=== PATIENT | male | born 1955 | race Caucasian/White ===

== ENCOUNTER 2018-04-20 19:56 | Inpatient (IN) ==
[2018-04-20] MEDS ORDERED: NS 1,000 ML IV ONE (20:49)
[2018-04-20 21:17] LABS: BASO# 0.02 X1000 (0.0-0.2); BASO% 0.3 % (0.0-0.8); EOS# 0.09 X1000 (0.0-0.7); EOS% 1.2 % (0.0-10.0); HEMOGLOBIN 11.3 g/dL (14.0-18.0); IMM GRAN# 0.07 X1000 (0.0-0.04); IMM GRAN% 0.9 % (0.0-0.5); LYMPH# 0.96 X1000 (1.2-3.4); LYMPH% 12.6 % (20.5-51.1); MCH 32.5 PG (27-31); MCHC 35.3 g/dL (33-37); MONO# 0.82 X1000 (0.11-0.59); MONO% 10.7 % (1.7-9.3); MPV 9.8 FL (7.4-10.4); NEUT# 5.68 X1000 (1.4-6.5); NEUT% 74.3 % (42.2-75.2); PLT 185 X1000 (130-400); RBC 3.48 XMIL (4.7-6.1); RDW 12.4 % (11.5-14.5); WBC 7.64 X1000 (4.8-10.8)
[2018-04-20 21:31] LABS: ALBUMIN 3.2 g/dL (3.5-5.0); CALCIUM 8.5 mg/dL (8.8-10.2); CREATININE 2.8 mg/dL (0.7-1.2); TOTAL BILIRUBIN 0.5 mg/dL (0.20-1.00); TOTAL PROTEIN 6.4 g/dL (6.3-8.3)
--- NOTE | 2018-04-20 22:01 | Diag Imaging Result Doc PS360 ---
EXAM: CT HEAD/C-SPINE W/O CONTRAST INDICATION: Fall with neck pain TECHNIQUE: This exam was performed using automated exposure control, adjustment of mA or kV according to patient size, and/or use of iterative reconstruction technique. COMPARISON: 05/10/2015 FINDINGS: Head: There is no definite acute infarct given the limited sensitivity of CT versus MRI. There is no discrete intracranial mass, mass effect, or intracranial hemorrhage. The surrounding soft tissues are essentially unremarkable. The calvaria is intact. C-spine: There is multilevel degenerative disc disease causing varying degrees of central canal and neuroforaminal stenosis, probably worst at C6-7 where there is fairly severe central canal and neuroforaminal stenosis. There are bulky flowing ventral marginal osteophytes that are more prominent than the previous study suggesting diffuse idiopathic skeletal hypertrophy (DISH). Otherwise, there is no discrete fracture, subluxation, or intrinsic osseous lesion. The surrounding soft tissues are essentially unremarkable. IMPRESSION: 1.No evidence of acute intracranial pathology. 2.Multilevel degenerative disc disease and suggestion of DISH. No evidence of fracture or other definite acute C-spine injury. Electronically signed by Kushal Freed 04/20/2018 9:59 PM
[2018-04-20] MEDS ORDERED: NS 1,000 ML IV SCH (23:30)
--- NOTE | 2018-04-21 00:26 | EKG Report ---
Test Performed on : 04/20/2018 8:05:09 PM Test Reason : syncope, hypotension Blood Pressure : / mmHG Vent. Rate : 072 BPM Atrial Rate : 072 BPM P-R Int : 180 ms QRS Dur : 092 ms QT Int : 436 ms P-R-T Axes : 072 051 048 degrees QTc Int : 477 ms Sinus rhythm. with premature atrial complexes. Low voltage QRS Cannot rule out Anterior infarct (cited on or before 26-JUL-2016) Abnormal ECG When compared with ECG of 26-JUL-2016 10:48, No significant change was found Unconfirmed Result
--- NOTE | 2018-04-21 01:20 | PROVIDER DOCUMENTATION ---
This chart was entered by Abi Freed Scribe, acting as scribe for Sophie Stone MD. HPI-General Adult - General Chief Complaint: Syncope Stated Complaint: syncope, fall, +LOC Time Seen by Provider: 04/20/18 20:25 Source: patient, family Allergies/Adverse Reactions: Patient Allergies Allergy/AdvReac Type Severity Reaction Status Date / Time hydrocodone Allergy ANAPHYLAXIS Verified 04/20/18 20:10 morphine Allergy HIVES Verified 04/20/18 20:10 codeine AdvReac SWELLING Verified 04/20/18 20:10 Home Medications: Home Medication List Medication Instructions Recorded Confirmed Last Taken Type Levothyroxine [Synthroid] 88 microgm PO DAILY #0 tablet 01/15/16 04/20/18 Unknown Rx Omeprazole [Prilosec] 20 mg PO DAILY@0700 #0 capsule 01/15/16 04/20/18 Unknown Rx Aripiprazole 10 mg PO DAILY 04/20/18 04/20/18 Unknown History Aspirin [Aspir-Low] 81 mg PO DAILY 04/20/18 04/20/18 Unknown History Clonazepam [Klonopin] 0.5 mg PO TID 04/20/18 04/20/18 Unknown History Divalproex [Depakote] 500 mg PO DAILY 04/20/18 04/20/18 Unknown History Losartan/Hydrochlorothiazide 1 tab PO DAILY 04/20/18 04/20/18 Unknown History [Losartan-Hctz 100-25 mg Tab] Trazodone [Desyrel] 50 mg PO DAILY 04/20/18 04/20/18 Unknown History Venlafaxine E.r. [Effexor Xr] 150 mg PO DAILY 04/20/18 04/20/18 Unknown History - History of Present Illness -Gen Adult Nature of Presenting Problems: 62 yom presents to ed w/cc pt states he "passed out" an hour ago while using the bathroom at a gas station. son reports that pt was taking longer than usual and went to the restroom to find pt and pt said he couldnt get up and was slumped over to left side. son also reports that pt barely gets any sleep at night and is exhausted all the time (maybe 30min-1hr in morning and 30min-1hr in afternoons). pt reprorts only taking half of his BP meds. pt states his neck is hurting. pt has hx of HTN, insomnia, thyorid disorder. Review of Systems - Adult - REVIEW OF SYSTEMS - ADULT Constitutional: reports: no symptoms reported Eyes: reports: no symptoms reported Ears, Nose, Mouth & Throat: reports: no symptoms reported Cardiovascular: reports: no symptoms reported Respiratory: reports: no symptoms reported Gastrointestinal: reports: no symptoms reported Genitourinary: reports: no symptoms reported Musculoskeletal: reports: see HPI, neck pain. denies: back pain, frequent leg cramps, joint pain Integumentary: reports: no symptoms reported Neurological: reports: see HPI Psychiatric: reports: depression Past History - Adult - PAST MEDICAL HISTORY-ADULT Review of Records: reports: Old Records Reviewed, Nursing Assessment Review, Medications Reviewed, Social history reviewed & non-contributory. Major Childhood Illnesses: reports: denies history Cardiovascular: reports: HTN Respiratory: reports: denies history Gastrointestinal: reports: denies history Obstetrical/Gynecological: reports: denies history Genitourinary: reports: denies history Musculoskeletal: reports: denies history Neurological: reports: denies history Psychiatric: reports: anxiety, bipolar, depression Endocrine/Immune: reports: thyroid disorder. denies: Diabetes Other Conditions: reports: denies history - PRIOR SURGERIES/PROCEDURES Surgical/Procedure History: reports: orthopedic (extremity), back/neck (back), other (perineal) - IMMUNIZATION STATUS Childhood Immunizations: See Nurse Assessment Flu Vaccine: See Nurse Assessment - FAMILY HISTORY Family History: reviewed, not pertinent - SOCIAL HISTORY Smoking: other (former) Provider spent 3-5 mins advising pt. on dangers of tobacco.: Discussed manners to quit use, and f/u contacts for add'l counseling. Substance Use: alcohol Alcohol Use Frequency: 3-4 times a week Physical Exam-General - PHYSICAL EXAM-ADULT Initial Vital Signs Reviewed: Yes - CONSTITUTIONAL General Appearance: mild distress, obese, anxious, lethargic. negative: appears well, no apparent distress, thin - EYES Eyes: PERRL/EOMI - HEAD, EARS, NOSE, MOUTH & THROAT HENMT: normocephalic/atraumatic, moist mucous membranes, normal ENT inspection, TMs normal - RESPIRATORY Respiratory: chest non-tender, lungs clear, normal breath sounds - CARDIOVASCULAR Cardiovascular: regular rate, rhythm - GASTROINTESTINAL (ABDOMEN) Abdominal Exam: normal bowel sounds, non tender, soft - MUSCULOSKELETAL Back Exam: normal inspection, no CVA tenderness, no vertebral tenderness Extremity: negative: normal range of motion, non-tender, normal gait, normal inspection, no pedal edema, no calf tenderness - SKIN Integumentary: normal color, normal turgor, warm/dry - NEUROLOGIC Neurologic: grossly normal, no motor/sensory deficits - PSYCHIATRIC Psych/Mental Status: anxious, disheveled, depressed affect. negative: normal mood/affect, normal thought content, normal thought process Progress - PLAN OF CARE/RESULTS Progress/Plan/Lab Results: Vital Signs - 8 hr 04/20/18 20:00 04/20/18 20:19 04/20/18 20:40 Temperature 97.4 F L Pulse Rate 74 71 74 Respiratory Rate 16 13 14 Blood Pressure 94/56 83/50 90/48 O2 Sat by Pulse Oximetry 96 95 96 Orders Category Date Time Status CT HEAD/C-SPINE W/O CONTRAST [CT] Stat Exams 04/20/18 20:49 Ordered CBC WITH ELECTRONIC DIFF [HEME] Stat Lab 04/20/18 20:49 Uncollected CMP [COMPREHENSIVE METABOLIC PANEL] [CHEM] Stat Lab 04/20/18 20:49 Uncollected TROPONIN T Stat Lab 04/20/18 20:49 Ordered 0.9% Sodium Chloride Inj [Ns] 1,000 ml Med 04/20/18 20:49 Active IV 999 mls/hr EKG [EKG] Stat Ther 04/20/18 20:00 Ordered C-COLLAR REMOVED AFTER C-SPINE RESULTS. Result Diagrams: 04/20/18 20:25 04/20/18 20:25 - EKG 1 Time of EKG reading by physician:: 20:05 EKG Read and Signed by:: Sophie Stone EKG Interpretation (*Must complete 3 of following elements*): Abnormal Rate: 72 Rhythm: SR w/ premature Atrial complexes QRS: other (low voltage qrs) AR Interval: normal - CONSULTS/PCP/HOSPITALIST Notification #1 *Consult/PCP/Hospitalist*: Dr. Cowan Time Discussed: 23:14 Consult Disposition: Admit (Accepted. Hx, PE and Dx discussed. Dr Cowan want NS@ 100 CC/HR and BMP Q4-6H. NURSE INFORMED TO UPDATE DR. COWAN WITH BMP RESULTS WHEN IT IS DONE.) Departure - Departure Date of Disposition Decision: 04/20/18 Time of Disposition Decision: 23:06 DIAGNOSIS: Hyponatremia, Falls frequently, Elevated serum creatinine Disposition: ADMITTED INPATIENT 09 Certified Medical Emergency: Emergent Condition: Serious - Critical Care Note This patient required my direct & personal management of CC.: No Attestation - Physician/ TAIWO Attestation Patient care was provided by Advanced Practice Provider:: No The physician spent face to face time with patient:: Yes Advanced Practice Provider documentation review:: Supervising physician onsite and consulted in the evaluation and care of this patient. The physician did have a face to face encounter with the patient. This chart was documented by the indicated scribe, (Abi Freed, Dani) and accurately reflects the services I performed and decisions made by me, Sophie Stone MD, as attested by the provider's signature.
[2018-04-21] MEDS ORDERED: FLU VACCINE IM ONE (01:43)
[2018-04-21 02:19] LABS: CALCIUM 8.6 mg/dL (8.8-10.2); CREATININE 2.4 mg/dL (0.7-1.2); POTASSIUM 3.4 mmol/L (3.5-5.1)
[2018-04-21 06:55] LABS: CALCIUM 8.2 mg/dL (8.8-10.2); CREATININE 2.2 mg/dL (0.7-1.2); POTASSIUM 3.3 mmol/L (3.5-5.1)
[2018-04-21] MEDS ORDERED: NS 1,000 ML IV SCH (08:45)
[2018-04-21] MEDS ORDERED: ABILIFY PO SCH (09:00)
[2018-04-21] MEDS ORDERED: DESYREL PO SCH (09:00)
[2018-04-21] MEDS: EFFEXOR XR PO SCH (10:24)
[2018-04-21] MEDS: KLONOPIN PO SCH ×3 (10:26→17:15)
[2018-04-21] MEDS: ASPIRIN EC PO SCH (10:26)
[2018-04-21] MEDS: SYNTHROID PO SCH (10:26)
[2018-04-21 10:37] LABS: CALCIUM 8.7 mg/dL (8.8-10.2); CREATININE 2.1 mg/dL (0.7-1.2); POTASSIUM 3.3 mmol/L (3.5-5.1)
--- NOTE | 2018-04-21 11:01 | HISTORY AND PHYSICAL ---
PRIMARY CARE PHYSICIAN: Dr. Kenny Rodriguez. CHIEF COMPLAINT: Syncopal episode while using the bathroom at a gas station. HISTORY OF PRESENTING ILLNESS: This is a 62-year-old male, who presents to [facility] ER stating that he had "passed out approximately 1 hour prior to arriving." States he was in the bathroom at a gas station. His son was with him, and found that the patient was taking longer than usual, went to the restroom, and found him slumped over in the floor, and could not get up. When he arrived to the emergency room, he had a sodium of 120, potassium of 3, creatinine was 2.8. His blood pressure was 94/56 and approximately 20 minutes later, dropped to 83/50. We did do a CT of the head and cervical spine that showed no evidence of acute intracranial pathology and multilevel degenerative disk disease, but no evidence of fracture. So, he was admitted for further evaluation and treatment. PAST MEDICAL HISTORY: Hypertension, hypothyroidism, bipolar type 1, osteoarthritis. PAST SURGICAL HISTORY: Three back surgeries, a right hip replacement, and a right ankle surgery. FAMILY HISTORY: Reviewed and noncontributory. SOCIAL HISTORY: He lives with his 17-year-old son, who was in the [employer] and [employer], but is currently not working. Drinks 4 beers 4 times a week. Denies any tobacco use, stating that he quit in 1999, and denies any illicit drugs. ALLERGIES: Hydrocodone, morphine, and codeine. HOME MEDICATIONS: We will hold his losartan/HCTZ 100/25 one p.o. daily, aspirin 81 mg p.o. daily, Klonopin 0.5 mg p.o. t.i.d., Depakote 500 mg p.o. daily, Synthroid 88 mcg p.o. daily, Prilosec 20 mg p.o. daily, Desyrel 100 mg p.o. at bedtime, and Effexor 150 mg p.o. daily. LABORATORY DATA: Showed a white blood cell count of 7.64, hemoglobin 11.3, hematocrit 32, platelets 185,000. Sodium was 120, potassium 3.0, chloride 76, BUN of 17, creatinine 2.8, glucose 119. Recheck of BMP this a.m. showed a sodium of 127, potassium 3.3, creatinine at 2.2. Depakote level was 27.40. CT of the head showed no evidence of acute intracranial pathology. CT of the C- spine showed multilevel degenerative disk disease and suggestion of DISH. No evidence of fracture or other definitive acute C spine injury. REVIEW OF SYSTEMS: He denied any fever, chills, blurred vision. He did have some dizziness with standing, had a syncopal episode. Denied any chest pain, coughing, shortness of breath. Denied any abdominal pain, constipation, diarrhea, burning or hurting with urination. PHYSICAL EXAMINATION: VITAL SIGNS: On arrival, he had a temp of 97.4 degrees, pulse 74, respirations 16, blood pressure 94/56, saturating 96% on room air. Approximately 20 minutes after arrival, his blood pressure dropped to 83/50. Currently, he is up to 103/53. GENERAL: This is a 62-year-old male who is lying in the bed and answers questions appropriately. HEENT: Normocephalic, atraumatic. Normal ENT inspection. Oropharynx and nares are clear. Pupils are equal, round, reactive to light and accommodation. Extraocular movements are intact. NECK: Normal inspection, normal range of motion. LUNGS: Clear to auscultation bilaterally with equal lung expansion and chest wall movement. HEART: Regular rate and rhythm. No murmurs, rubs, or gallops. ABDOMEN: Soft, nontender, nondistended. Bowel sounds are present x4 quadrants. MUSCULOSKELETAL: He has 5/5 strength x4 extremities. NEUROLOGICAL: The cranial nerves 2-12 appear grossly intact. ASSESSMENT: 1. Syncope. 2. Hypotension. 3. Acute kidney injury. 4. Hypokalemia. 5. Hyponatremia. 6. Hypothyroidism. PLAN: He was admitted to the medical unit at [facility]. Placed on healthy heart diet. We are going to check a BMP q.[address] on normal saline at 75 mL an hour. Check a carotid ultrasound and an echocardiogram today. We will continue his home medications as previously identified. We will hold his ARB and diuretic medications at this time. Further orders after seen by attending. Dictated by YANNI Arango for Nhan Wall MD cc: YANNI Arango MD Brian R. James, MD
[2018-04-21] MEDS: DEPAKOTE PO SCH (13:00)
--- NOTE | 2018-04-21 13:24 | Extremity Venous Study ---
EXAM: Carotid Ultrasound HISTORY: syncope TECHNIQUE: Carotid Doppler ultrasound COMPARISON: None. FINDINGS: Right: There is normal flow in the common carotid artery. No stenosis. There is a small amount of plaque within the bulb. Peak systolic velocity in the internal carotid artery is 77 cm/s. The ICA/CCA ratio 0.7. There is antegrade flow in the vertebral artery. Left: There is normal flow in the common carotid artery. A small amount of plaque is present in the bulb. The peak systolic velocity in the internal carotid artery is 77 cm/s. The ICA/CCA ratio 0.7. There is antegrade flow in the vertebral artery. IMPRESSION: Mild stenosis within each proximal internal carotid artery of less than 40% Electronically signed by Dave Doyle 04/21/2018 1:22 PM
[2018-04-21] MEDS ORDERED: D5 1/2 NS 1,000 ML IV SCH (14:45)
[2018-04-21] MEDS ORDERED: D5 1/2 NS 500 ML IV SCH ×2 (14:45)
[2018-04-21 14:46] LABS: CALCIUM 8.3 mg/dL (8.8-10.2); POTASSIUM 3.2 mmol/L (3.5-5.1)
[2018-04-21] MEDS: NS 1,000 ML IV SCH ×2 (16:30→22:00)
[2018-04-21 16:33] LABS: UR PROT RANDOM 4.5 mg/dL
--- NOTE | 2018-04-21 16:47 | ECHO REPORT ---
ORDER DATE: 04/21/2018 INTERPRETING PHYSICIAN: Dr. Cano REQUESTING PHYSICIAN: Dr. Wall, hospitalist CLINICAL INDICATIONS: This is a 62-year-old male with syncope, inpatient at [facility]. M-MODE MEASUREMENTS: Right ventricle: cm. Left ventricle end diastole: 3.6 cm. Left ventricle end systole: 2.4 cm. Posterior wall: 1.3 cm. Interventricular septum: 1.3 cm. Left atrium: 3.7 cm. Aortic root: 2.3 cm. SUMMARY OF 2-DIMENSIONAL IMAGIN. The left ventricular function is normal. The ejection fraction is estimated at 60% to 65%. Definity was added to optimize visualization of endocardium. This study was technically difficult. 2. The right ventricle appears to be mildly enlarged. The patient is obese. 3. Atria appear to be grossly normal. 4. Aortic valve looks normal. Color flow mapping is unremarkable. 5. Pulmonic valve was normal. Color flow mapping is unremarkable. 6. Tricuspid valve shows no significant regurgitation. 7. Mitral valve looks normal. Color flow mapping is unremarkable. 8. Pulse wave Doppler of mitral inflow is normal. 9. Tissue Doppler of septal and lateral mitral annulus averages 8 cm. 10.There is no diastolic dysfunction. 11.There is no pericardial effusion, masses or thrombus. 12.Epicardial fat pad is noted. Clinical correlation is recommended. cc: MD Echo Valentino CRNP
[2018-04-21] MEDS ORDERED: NS 500 ML IV ONE (16:58)
[2018-04-21 18:18] LABS: CREATININE 1.7 mg/dL (0.7-1.2); POTASSIUM 3.3 mmol/L (3.5-5.1)
--- NOTE | 2018-04-21 20:31 | HISTORY AND PHYSICAL ---
SUBJECTIVE: The patient came in with weakness and dizziness. He was found to be profoundly orthostatic, hyponatremic and in acute kidney injury. He denies any major symptoms. He has had his medications adjusted. He does have bipolar and he is on several psychiatric medications but his sodium today was as low as 120, potassium low as well, which he has since improved with treatment. In any case patient was admitted for hyponatremia, acute kidney injury and syncope. Physical exam is unremarkable. Certainly not overloaded. I really do not feel like he is clinically dehydrated but he is orthostatic so we will continue normal saline and adjust accordingly. I think this may be related to hydrochlorothiazide which we are going to hold, we are checking his electrolytes, urine electrolytes and decide more about long-term course of action. cc: Nhan Wall MD
[2018-04-21] MEDS: DESYREL PO SCH (20:56)
[2018-04-21 22:26] LABS: CALCIUM 8.1 mg/dL (8.8-10.2); CREATININE 1.8 mg/dL (0.7-1.2); POTASSIUM 3.6 mmol/L (3.5-5.1)
[2018-04-22] MEDS: PRILOSEC PO SCH (06:12)
[2018-04-22] MEDS: SYNTHROID PO SCH (06:12)
[2018-04-22 06:15] LABS: BASO# 0.02 X1000 (0.0-0.2); BASO% 0.3 % (0.0-0.8); EOS# 0.13 X1000 (0.0-0.7); EOS% 2.2 % (0.0-10.0); HEMATOCRIT 32.3 % (42.0-52.0); IMM GRAN# 0.06 X1000 (0.0-0.04); LYMPH# 1.25 X1000 (1.2-3.4); LYMPH% 21.6 % (20.5-51.1); MCH 32.4 PG (27-31); MCHC 34.1 g/dL (33-37); MONO# 0.61 X1000 (0.11-0.59); MONO% 10.5 % (1.7-9.3); MPV 9.2 FL (7.4-10.4); NEUT# 3.72 X1000 (1.4-6.5); NEUT% 64.4 % (42.2-75.2); PLT 171 X1000 (130-400); RDW 12.6 % (11.5-14.5); WBC 5.79 X1000 (4.8-10.8)
[2018-04-22 06:31] LABS: CALCIUM 8.2 mg/dL (8.8-10.2); CREATININE 1.7 mg/dL (0.7-1.2); POTASSIUM 3.6 mmol/L (3.5-5.1)
[2018-04-22] MEDS: NS 1,000 ML IV SCH ×2 (07:29→17:18)
[2018-04-22] MEDS: ASPIRIN EC PO SCH (09:09)
[2018-04-22] MEDS: DEPAKOTE PO SCH (09:09)
[2018-04-22] MEDS: KLONOPIN PO SCH ×3 (09:09→17:18)
[2018-04-22] MEDS: EFFEXOR XR PO SCH (09:09)
[2018-04-22 11:41] LABS: CALCIUM 8.3 mg/dL (8.8-10.2); CREATININE 1.6 mg/dL (0.7-1.2); POTASSIUM 3.4 mmol/L (3.5-5.1)
[2018-04-22 17:05] LABS: CREATININE 1.5 mg/dL (0.7-1.2); POTASSIUM 3.4 mmol/L (3.5-5.1)
[2018-04-22] MEDS ORDERED: KLOR-CON PO ONE (18:19)
[2018-04-22 20:10] LABS: CALCIUM 7.9 mg/dL (8.8-10.2); CREATININE 1.4 mg/dL (0.7-1.2); POTASSIUM 3.2 mmol/L (3.5-5.1)
[2018-04-22] MEDS: DESYREL PO SCH (21:35)
--- NOTE | 2018-04-22 23:33 | PROGRESS NOTE ---
DATE: 04/22/2018 SUBJECTIVE: The patient has no focal complaints. OBJECTIVE: Vital Signs: Blood pressure 104/61, heart rate of 81, respiratory rate of 20, temperature 98.1 degrees. Cardiovascular: Regular rate and rhythm. Pulmonary: Bilateral breath sounds. Clear to auscultation. Gastrointestinal: Soft, nontender, nondistended. Bowel sounds were positive. LABORATORY STUDIES: White count 5, H H of 11 and 32, platelets 171,000. Sodium is 132, potassium 3.4. TSH 4.99. Urine sodium is 15. Urine osmolarity is only 145. PROBLEM LIST: 1. Symptomatic hyponatremia, likely related to reset osmostat from hydrochlorothiazide. He is improving with fluids. Anticipate it will normalize, or be safe enough for discharge tomorrow. 2. Hypothyroidism. I am uncertain if he has got some concurrent hypothyroid issues. He is on Synthroid at 88 mcg. We will check his free T4 tomorrow. If it is low, we may need to adjust his thyroid level. 3. Bipolar. Seems to be well-controlled. I do not think this is related to his medications. I think it is related to his diuretic. It is listed he is on HCTZ. For some reason, I thought that he was also on Lasix, but I think it is like the HCTZ effect. 4. Disposition. We need to work on ambulating him. He seems better. 5. Acute kidney injury. That is also improving with hydration. We will continue to follow. cc: Nhan Wall MD
[2018-04-23] MEDS: LOVENOX SUBQ SCH (06:07)
[2018-04-23] MEDS: PRILOSEC PO SCH (06:07)
[2018-04-23] MEDS: SYNTHROID PO SCH (06:07)
[2018-04-23 06:30] LABS: BASO# 0.02 X1000 (0.0-0.2); BASO% 0.4 % (0.0-0.8); EOS% 3.6 % (0.0-10.0); HEMATOCRIT 31.4 % (42.0-52.0); HEMOGLOBIN 10.4 g/dL (14.0-18.0); IMM GRAN# 0.04 X1000 (0.0-0.04); IMM GRAN% 0.7 % (0.0-0.5); LYMPH# 1.41 X1000 (1.2-3.4); LYMPH% 25.5 % (20.5-51.1); MCH 32.2 PG (27-31); MCHC 33.1 g/dL (33-37); MCV 97.2 FL (81-99); MONO# 0.73 X1000 (0.11-0.59); MONO% 13.2 % (1.7-9.3); MPV 9.3 FL (7.4-10.4); NEUT# 3.14 X1000 (1.4-6.5); NEUT% 56.6 % (42.2-75.2); PLT 159 X1000 (130-400); RBC 3.23 XMIL (4.7-6.1); RDW 12.6 % (11.5-14.5); WBC 5.54 X1000 (4.8-10.8)
[2018-04-23 06:41] LABS: CALCIUM 8.2 mg/dL (8.8-10.2); CREATININE 1.5 mg/dL (0.7-1.2); MAGNESIUM 2.1 mg/dL (1.5-2.7); POTASSIUM 3.8 mmol/L (3.5-5.1)
[2018-04-23] MEDS: ASPIRIN EC PO SCH (09:05)
[2018-04-23] MEDS: KLONOPIN PO SCH ×3 (09:05→16:44)
[2018-04-23] MEDS: DEPAKOTE PO SCH (09:05)
[2018-04-23] MEDS: EFFEXOR XR PO SCH (09:05)
[2018-04-23] MEDS: NS 1,000 ML IV SCH ×3 (11:49→21:52)
--- NOTE | 2018-04-23 15:25 | PROGRESS NOTE ---
DATE: 04/23/2018 SUBJECTIVE: This morning Mr. Whalen refers to be doing fairly okay. Denies any acute complaints. Mr. Whalen has a history of bipolar disorder, follows up with Dr. Ervin. According to him, he went to use the restroom. After sitting down for some time, he stood up, felt dizzy and then just went flat down. Upon presenting to the emergency department, he was evaluated, was found to be hypotensive, was admitted for further medical evaluation. Of note Mr. Whalen is on a lot of psychotropic medications,including Klonopin, Depakote, trazodone and Effexor. OBJECTIVE: Current vitals: Blood pressure is 113/75, pulse is 70, respiration is 18, temperature is 98.4 degrees. General exam: Mr. Whalen is a 62-year-old gentleman. He is in bed. Not seemingly distressed. HEENT: Mucosa is pink, slightly dry. Anicteric. Acyanotic. Neck: Supple. Chest: Clear to auscultation. No crepitations. No rhonchi. Cardiovascular: Regular rate and rhythm. No murmurs, no rubs, no gallops. Abdomen: Soft. Extremities : No pedal edema. SIGNAL APPRENTICE: Patient is awake, alert. Does have a mask-like fascia consistent with possible Parkinson. He also has a right hand resting tremor, which seems to improve some with intention. LABORATORY DATA: WBC is 5.54, hemoglobin is 10.4, platelet count of 159. Chemistry is also reviewed. Creatinine is down to 1.5 and sodium has improved to 136 from 120. MEDICATIONS: Patient medications have also been reviewed. IMAGING STUDIES: A CT scan of the head, cervical spine did show no evidence of acute intracranial pathology. There was, however, multilevel degenerative disk disease and suggestion of DISH which is diffuse idiopathic skeletal hypertrophy. Carotid Doppler showed mild stenosis within each proximal carotid artery of less than 40%. An echocardiogram has shown ejection fraction of 60 to 65 percent. ASSESSMENT: 1. Syncope on presentation likely due to orthostatic hypotension. Blood pressures have normalized. It is also very possible that this was all secondary to volume depletion from diuretic therapy, as well as vasoactive effect of his psychotropic medications including Effexor, trazodone and Depakote. 2. Clinical volume depletion, improved. 3. Severe hyponatremia, improved. 4. History of bipolar disorder. Patient has been started back on his home medications and he seems to be doing better. 5. Acute kidney injury, improving. 6. Residual right-side resting tremor, which improved slightly with intent associated with mask-like face (hypomimia). All these are suggestive of possible Parkinson. Unsure if patient has idiopathic or is medication-induced. We would advise that the patient follows up with Neurology at a later date. 7. Suspected diffuse idiopathic skeletal hypertrophy on imaging studies noted. 8. Multilevel cervical degenerative disk disease. 9. Nonobstructive bilateral carotid atherosclerotic disease. We will start the patient on statin. He is currently on aspirin. PLAN: So, in general, Mr. Whalen seems to be doing fairly okay. Sodium has significantly improved. Hydrochlorothiazide has been withheld. He has not had any more syncope while here, and all his other investigations seem to be unremarkable. We will re-evaluate him tomorrow with his labs. If everything is okay, I think we will be able to discharge him. Patient has been made aware of a possible discharge tomorrow. cc: Rakan Garcia MD [facility]
[2018-04-23] MEDS: DESYREL PO SCH (21:52)
[2018-04-23] MEDS: LIPITOR PO SCH (21:52)
[2018-04-24] MEDS: LOVENOX SUBQ SCH (05:55)
[2018-04-24] MEDS: PRILOSEC PO SCH ×2 (05:55→07:13)
[2018-04-24] MEDS: SYNTHROID PO SCH ×2 (05:55→07:13)
[2018-04-24 06:08] LABS: BASO# 0.02 X1000 (0.0-0.2); BASO% 0.3 % (0.0-0.8); EOS% 2.9 % (0.0-10.0); HEMATOCRIT 32.7 % (42.0-52.0); HEMOGLOBIN 10.7 g/dL (14.0-18.0); IMM GRAN# 0.08 X1000 (0.0-0.04); IMM GRAN% 1.2 % (0.0-0.5); LYMPH# 1.17 X1000 (1.2-3.4); MCHC 32.7 g/dL (33-37); MCV 97.9 FL (81-99); MONO# 0.78 X1000 (0.11-0.59); MONO% 11.3 % (1.7-9.3); MPV 9.1 FL (7.4-10.4); NEUT# 4.65 X1000 (1.4-6.5); NEUT% 67.3 % (42.2-75.2); PLT 171 X1000 (130-400); RBC 3.34 XMIL (4.7-6.1); RDW 12.9 % (11.5-14.5)
[2018-04-24 06:25] LABS: ALBUMIN 3.2 g/dL (3.5-5.0); CREATININE 1.4 mg/dL (0.7-1.2); POTASSIUM 4.1 mmol/L (3.5-5.1); TOTAL BILIRUBIN 0.4 mg/dL (0.20-1.00); TOTAL PROTEIN 5.9 g/dL (6.3-8.3)
[2018-04-24] MEDS: NS 1,000 ML IV SCH ×2 (07:12→21:58)
[2018-04-24] MEDS: KLONOPIN PO SCH ×4 (07:13→20:34)
[2018-04-24] MEDS: ASPIRIN EC PO SCH (09:44)
[2018-04-24] MEDS: EFFEXOR XR PO SCH (09:44)
[2018-04-24] MEDS: DEPAKOTE PO SCH (09:44)
--- NOTE | 2018-04-24 14:04 | Diag Imaging Result Doc PS360 ---
EXAM: CHEST-PORTABLE - 04/24/2018 HISTORY: Dyspnea; Hypoxemia TECHNIQUE: Portable chest COMPARISON: 05/10/2015 FINDINGS: Heart size appears mildly enlarged. The projection is somewhat lordotic. There are apparent mild interstitial infiltrates or edema. There is no dense consolidation, substantial pleural effusion, or pneumothorax identified. IMPRESSION: Mild cardiomegaly. Mild interstitial infiltrates or edema. Electronically signed by Juancarlos Ascencio 04/24/2018 2:02 PM
--- NOTE | 2018-04-24 14:09 | PROGRESS NOTE ---
DATE: 04/24/2018 SUBJECTIVE: The patient complained of having weakness and slight shortness of breath. OBJECTIVE: Vital Signs: Temperature 100 degrees, pulse 87 per minute, respiratory rate 20 per minute, blood pressure 138/77, pulse oximetry 90 percent on room air. General: The patient is alert and oriented x3. He does not appear to be in any acute distress. Cardiovascular System: First and second heart sounds are audible without any murmurs or gallops. Respiratory System: Bilateral lung air entry is moderately decreased with no rales or rhonchi present on auscultation. Gastrointestinal System: Patient is morbidly obese. Abdomen is soft and nontender on palpation. Normal bowel sounds are present. DIAGNOSTIC DATA: CBC shows hemoglobin of 10.7 and hematocrit 32.7. Rest of the CBC is nondiagnostic. In comparison, his CBC was essentially the same as yesterday. Comprehensive metabolic panel is nondiagnostic, except for borderline albumin level of 3.2. IMPRESSION: 1. Syncope with hypovolemia and acute kidney injury, which has now improved. 2. Hyponatremia, that has also improved. 3. Anemia that has been stable. 4. Carotid atherosclerosis that is of mild degree of less than 40%. PLAN: The patient has been doing well in his hypokalemia, along with acute kidney injury and hyponatremia improved. His oxygen was noted to be low, and he was having 100 degrees Fahrenheit temperature. We were actually discharging the patient home today, but because of his low pulse ox and not feeling well, along with low-grade fever, we have cancelled the discharge. I am going to obtain a chest x-ray and ABG stat, and give further orders accordingly. He has not been getting any antibiotics, and we will address that accordingly if he needs any antibiotics as per chest x- ray. Otherwise, it is very possible that he has a low pulse ox because of his morbid obesity. Further recommendations will be given as per hospital course. cc: Emily Escobedo MD
[2018-04-24 15:15] LABS: BE 2.6 mmoll (-3.0-3.0); BLOOD TYPE ARTERIAL; HCO3-(ACT) 26.8 mmoll (20.0-26.0); METHB 0.5 % (0.0-1.5); O2(CT) 13.2 mL/dL (15.0-23.0); PCO2(98.6) 35 mmHg (35-45); PO2(98.6) 54 mmHg (60-100); SAMPLE BLOOD; SAO2 94.4 % (95.0-100.0); THB 10.3 g/dL (11.5-17.4); pH(98.6) 7.48 (7.35-7.45)
[2018-04-24 15:20] LABS: ALLEN TEST YES; MODALITY ROOM AIR
[2018-04-24] MEDS: TYLENOL PO PRN (17:53)
[2018-04-24] MEDS: ZOSYN 3.375 GM in NS 50 ML IV SCH (18:08)
[2018-04-24] MEDS: DOXYCYCLINE 100 MG in NS 250 ML IV SCH (18:44)
[2018-04-24] MEDS: DESYREL PO SCH (20:34)
[2018-04-24] MEDS: LIPITOR PO SCH (20:35)
[2018-04-25] MEDS: ZOSYN 3.375 GM in NS 50 ML IV SCH ×5 (00:12→22:55)
[2018-04-25] MEDS: PRILOSEC PO SCH (06:11)
[2018-04-25] MEDS: LOVENOX SUBQ SCH (06:11)
[2018-04-25] MEDS: TYLENOL PO PRN (06:11)
[2018-04-25] MEDS: SYNTHROID PO SCH (06:11)
[2018-04-25] MEDS: DOXYCYCLINE 100 MG in NS 250 ML IV SCH ×2 (06:15→18:27)
[2018-04-25] MEDS: DEPAKOTE PO SCH (08:39)
[2018-04-25] MEDS: NS 1,000 ML IV SCH ×3 (08:39→17:32)
[2018-04-25] MEDS: KLONOPIN PO SCH ×4 (08:39→21:00)
[2018-04-25] MEDS: EFFEXOR XR PO SCH (08:39)
[2018-04-25] MEDS: ASPIRIN EC PO SCH (08:39)
--- NOTE | 2018-04-25 12:11 | PROGRESS NOTE ---
DATE: 04/25/2018 SUBJECTIVE: The patient feels somewhat better this morning. He denies having any acute complaints. He is actually happy that he did not go home yesterday. OBJECTIVE: Vital Signs: Temperature 98.5 degrees, pulse 72 per minute, respiratory rate 20 per minute, blood pressure 146/85, and pulse oximetry 100% on 2 L of oxygen via nasal cannula. General: Patient is alert and oriented x3. He does not appear to be in any acute distress. Cardiovascular System: First and second heart sounds are audible without any murmurs or gallops. Respiratory System: No respiratory distress noted. Bilateral lung air entry is moderately decreased, but there are no rales or rhonchi present on auscultation. Gastrointestinal: Abdomen is soft and nondistended. Normal bowel sounds are present. DIAGNOSTIC DATA: Chest x-ray done last night showed mild cardiomegaly and mild interstitial infiltrates bilaterally. IMPRESSION: 1. Pneumonia. 2. Chronic kidney disease that is stage 3. 3. Hypothyroidism. 4. Carotid atherosclerosis. PLAN: The patient was supposed to go home yesterday, but developed some respiratory issues and hypoxemia after which he had a chest x-ray done that showed bilateral interstitial infiltrates. He has been initiated on Zosyn along with doxycycline intravenously which we will continue. He will continue with IV fluid, and also continue with the rest of his current medications. Venous thromboembolism prophylaxis will be provided with enoxaparin 40 mg subcutaneously every day. The further recommendations will be as per hospital course. cc: Emily Escobedo MD
[2018-04-25] MEDS: DESYREL PO SCH (21:00)
[2018-04-25] MEDS: LIPITOR PO SCH (21:00)
[2018-04-26] MEDS: NS 1,000 ML IV SCH ×2 (04:10→13:09)
[2018-04-26] MEDS: ZOSYN 3.375 GM in NS 50 ML IV SCH ×4 (05:07→23:33)
[2018-04-26] MEDS: LOVENOX SUBQ SCH (06:12)
[2018-04-26] MEDS: PRILOSEC PO SCH (06:13)
[2018-04-26] MEDS: SYNTHROID PO SCH (06:13)
[2018-04-26 07:39] LABS: BASO# 0.02 X1000 (0.0-0.2); BASO% 0.3 % (0.0-0.8); EOS# 0.25 X1000 (0.0-0.7); EOS% 3.8 % (0.0-10.0); HEMATOCRIT 32.3 % (42.0-52.0); HEMOGLOBIN 10.6 g/dL (14.0-18.0); IMM GRAN# 0.08 X1000 (0.0-0.04); IMM GRAN% 1.2 % (0.0-0.5); LYMPH# 1.02 X1000 (1.2-3.4); LYMPH% 15.6 % (20.5-51.1); MCH 32.1 PG (27-31); MCHC 32.8 g/dL (33-37); MCV 97.9 FL (81-99); MONO# 0.75 X1000 (0.11-0.59); MONO% 11.5 % (1.7-9.3); MPV 8.6 FL (7.4-10.4); NEUT# 4.42 X1000 (1.4-6.5); NEUT% 67.6 % (42.2-75.2); PLT 186 X1000 (130-400); WBC 6.54 X1000 (4.8-10.8)
[2018-04-26 07:57] LABS: AGAP 13; BUN 6 mg/dL (8-22); CALCIUM 8.4 mg/dL (8.8-10.2); CHLORIDE 99 mmol/L (98-107); COSMO 275; CREATININE 1.2 mg/dL (0.7-1.2); ESTIMATED GFR > 60; GLUCOSE 89 mg/dL (70-104); POTASSIUM 3.8 mmol/L (3.5-5.1); SODIUM 139 mmol/L (136-145); TCO2 27 mmol/L (25-35)
[2018-04-26] MEDS: EFFEXOR XR PO SCH (08:19)
[2018-04-26] MEDS: KLONOPIN PO SCH ×2 (08:19→21:02)
[2018-04-26] MEDS: DOXYCYCLINE 100 MG in NS 250 ML IV SCH ×2 (08:19→21:01)
[2018-04-26] MEDS: DEPAKOTE PO SCH (08:19)
[2018-04-26] MEDS: ASPIRIN EC PO SCH (08:19)
[2018-04-26] MEDS: TYLENOL PO PRN ×2 (08:33→12:40)
--- NOTE | 2018-04-26 12:32 | PROGRESS NOTE ---
DATE: 04/26/2018 SUBJECTIVE: Patient denies having any acute complaints and feels better this morning. OBJECTIVE: Vital Signs: Temperature 98.3 degrees, pulse 66 per minute, respiratory rate 20 per minute, blood pressure 137/89, pulse oximetry 100% on 2 L of oxygen via nasal cannula. General: Patient is alert and oriented x3. He does not appear to be in any acute distress. Cardiovascular System: First and second heart sounds are audible without any murmurs or gallops. Respiratory System: Bilateral lung air entry is slightly decreased, but there are no rales or rhonchi present on auscultation. Gastrointestinal: Abdomen is soft and nontender. Normal bowel sounds are present. DIAGNOSTIC DATA: CBC shows stable hemoglobin of 10.6 and hematocrit 32.3. Rest of the CBC is nondiagnostic. Basic metabolic panel was within normal limits. IMPRESSION: 1. Pneumonia. 2. Acute kidney injury, that has now improved. 3. Hypothyroidism. 4. Carotid atherosclerosis. PLAN: We are going to continue him on Zosyn intravenously for his pneumonia and continue with IV fluids. We will continue with the rest of supportive care and follow the hospital course. cc: Emily Escobedo MD
[2018-04-26] MEDS ORDERED: MOTRIN PO PRN (14:27)
[2018-04-26] MEDS: LIPITOR PO SCH (21:01)
[2018-04-26] MEDS: DESYREL PO SCH (21:02)
[2018-04-27] MEDS: NS 1,000 ML IV SCH (03:04)
[2018-04-27] MEDS: IMODIUM PO PRN ×2 (03:04→07:05)
[2018-04-27 06:05] LABS: BE 2.1 mmoll (-3.0-3.0); BLOOD TYPE ARTERIAL; HCO3-(ACT) 26.5 mmoll (20.0-26.0); O2(CT) 17.1 mL/dL (15.0-23.0); O2HB 95.7 % (95.0-99.0); PCO2(98.6) 44 mmHg (35-45); PO2(98.6) 93 mmHg (60-100); SAMPLE BLOOD; SAO2 98.9 % (95.0-100.0); THB 12.6 g/dL (11.5-17.4)
[2018-04-27 06:06] LABS: ALLEN TEST YES; MODALITY CANNULA
[2018-04-27] MEDS: SYNTHROID PO SCH (06:31)
[2018-04-27] MEDS: LOVENOX SUBQ SCH (06:31)
[2018-04-27] MEDS: PRILOSEC PO SCH (06:31)
[2018-04-27] MEDS: ZOSYN 3.375 GM in NS 50 ML IV SCH ×3 (06:32→14:09)
[2018-04-27 07:34] LABS: BASO# 0.03 X1000 (0.0-0.2); BASO% 0.5 % (0.0-0.8); EOS# 0.22 X1000 (0.0-0.7); EOS% 3.8 % (0.0-10.0); HEMATOCRIT 32.1 % (42.0-52.0); HEMOGLOBIN 10.4 g/dL (14.0-18.0); IMM GRAN# 0.06 X1000 (0.0-0.04); LYMPH# 0.98 X1000 (1.2-3.4); MCH 31.9 PG (27-31); MCHC 32.4 g/dL (33-37); MCV 98.5 FL (81-99); MONO% 10.4 % (1.7-9.3); MPV 8.3 FL (7.4-10.4); NEUT# 3.86 X1000 (1.4-6.5); NEUT% 67.3 % (42.2-75.2); PLT 196 X1000 (130-400); RBC 3.26 XMIL (4.7-6.1); RDW 13.1 % (11.5-14.5); WBC 5.75 X1000 (4.8-10.8)
--- NOTE | 2018-04-27 07:43 | Diag Imaging Result Doc PS360 ---
EXAM: CHEST-PORTABLE HISTORY: Pneumonia TECHNIQUE: Chest single view COMPARISON: 04/24/2018 FINDINGS: The lungs are well expanded. No cardiomegaly. Questionable trace right pleural effusion. There are mild increased interstitial markings throughout both lungs. No consolidation. IMPRESSION: No improvement in the bilateral infiltrates versus pulmonary edema. Electronically signed by Dave Doyle 04/27/2018 7:41 AM
[2018-04-27 08:08] LABS: AGAP 12; BUN 5 mg/dL (8-22); CALCIUM 8.3 mg/dL (8.8-10.2); CHLORIDE 103 mmol/L (98-107); COSMO 279; ESTIMATED GFR > 60; GLUCOSE 79 mg/dL (70-104); POTASSIUM 3.8 mmol/L (3.5-5.1); SODIUM 142 mmol/L (136-145); TCO2 28 mmol/L (25-35)
[2018-04-27] MEDS: EFFEXOR XR PO SCH (08:54)
[2018-04-27] MEDS: ASPIRIN EC PO SCH (08:54)
[2018-04-27] MEDS: DEPAKOTE PO SCH (08:54)
[2018-04-27] MEDS: KLONOPIN PO SCH (08:54)
[2018-04-27] MEDS ORDERED: DOXYCYCLINE PO SCH (09:00)
[2018-04-27] MEDS ORDERED: TUMS EXTRA STRENGTH PO PRN (10:23)
[2018-04-27 11:18] VITALS: BP 152/78
--- NOTE | 2018-04-27 11:43 | EKG Report ---
Test Performed on : 04/27/2018 10:19:18 AM Test Reason : CP Blood Pressure : / mmHG Vent. Rate : 062 BPM Atrial Rate : 062 BPM P-R Int : 130 ms QRS Dur : 080 ms QT Int : 442 ms P-R-T Axes : 059 071 057 degrees QTc Int : 448 ms Normal sinus rhythm. Low voltage QRS Borderline ECG When compared with ECG of 20-APR-2018 20:05, (Unconfirmed) premature atrial complexes. are no longer present Unconfirmed Result
[2018-04-27] MEDS: TYLENOL PO PRN (11:51)
--- NOTE | 2018-04-28 05:35 | DISCHARGE SUMMARY ---
ADMISSION DATE: 04/20/2018 DISCHARGE DATE: 04/27/2018 DISCHARGE DIAGNOSES: 1. Pneumonia. 2. Acute kidney injury, resolved. 3. Hypertension. 4. Hypothyroidism. 5. Known carotid atherosclerosis. CONSULTATIONS: None. PROCEDURES: None. BRIEF HOSPITAL COURSE: Patient is a 62-year-old male who presented to the hospital treated in usual fashion, placed on antibiotics, oxygen, breathing treatments and antibiotics. Thankfully he on discharge he is stable on room air with normal O2 saturation. He is able to ambulate. He is having no respiratory distress. He had an uneventful hospital course and, therefore, will be discharged home. DISPOSITION: The patient be discharged on doxycycline and Omnicef for the next 5 days. We will follow up outpatient with treatment facility of choice. Discussed with patient the perils of smoking as well as reasons to avoid smoke contact. cc: Varun Urbina MD
== END 2018-04-27 15:25 | disposition home or self-care (01) | DRG 682 ==
LOC: P.ED 19:56 → P.MEDSURG 19:57 → SUATTDRO 19:57
PROVIDERS: ATTEND Family Medicine
CPT/HCPCS: 36415; 70450; 71010; 71045; 72125; 80048; 80053; 80164; 80165; 82570; 82805; 83735; 83935; 84156; 84300; 84439; 84443; 84484; 85025; 87040; 87324; 90686; 93005; 93306; 93880; 94761; 96360; 96361; 99285; A9270; C8929; J1650; J2543; J7030; J7040; J7050; Q9957

== ENCOUNTER 2019-01-11 10:45 | Inpatient (IN) ==
[2019-01-11] MEDS ORDERED: NS 1,000 ML IV ONE (11:20)
[2019-01-11] MEDS ORDERED: ATIVAN IV ONE (11:20)
[2019-01-11] MEDS ORDERED: M.V.I.-12 10 ML, FOLIC ACID 1 MG, MAGNESIUM SULFATE 1 GM, THIAMINE 100 MG in NS 1,000 ML IV ONE (11:34)
[2019-01-11 11:44] LABS: UR AMPHETAMINES QUAL NONE DETECTED (NONE DETECT); UR BARBITUATES QUAL NONE DETECTED (NONE DETECT); UR BENZODIAZEPIN QUAL NONE DETECTED (NONE DETECT); UR CANNABINOIDS QUAL NONE DETECTED (NONE DETECT); UR COCAINE QUAL NONE DETECTED (NONE DETECT); UR METHADONE QUAL NONE DETECTED (NONE DETECT); UR METHAMPHETAMINE QUAL NONE DETECTED (NONE DETECT); UR OPIATES QUAL NONE DETECTED (NONE DETECT); UR OXYCODONE QUAL NONE DETECTED (NONE DETECT); UR PCP QUAL NONE DETECTED (NONE DETECT); UR PROPOXYPHENE QUAL NONE DETECTED (NONE DETECT); UR TCA QUAL NONE DETECTED (NONE DETECT)
[2019-01-11 11:44] LABS: BILIRUBIN URINE NEGATIVE (NEGATIVE); BLOOD URINE NEGATIVE (NEGATIVE); CLARITY CLEAR (CLEAR); COLOR YELLOW; GLUCOSE URINE NEGATIVE (NEGATIVE); KETONE URINE NEGATIVE (NEGATIVE); LEUKOCYTES URINE NEGATIVE (NEGATIVE); NITRITE URINE NEGATIVE (NEGATIVE); PH URINE 6.5; PROTEIN URINE NEGATIVE (NEGATIVE); SP GRAVITY URINE 1.005; UROBILINOGEN URINE NORMAL
[2019-01-11 11:50] LABS: URINE BACTERIA NEGATIVE /HFP; URINE CAST NONE SEEN /LPF; URINE CRYSTAL NONE SEEN /HPF; URINE EPITHELIAL CELLS <10 /HPF (<10); URINE RBC <10 /HPF (<10); URINE WBC <10 /HPF (<10); URINE YEAST NONE SEEN /HPF
[2019-01-11 11:51] LABS: URINE SOURCE CLEAN CATCH
[2019-01-11 11:55] LABS: BASO# 0.01 X1000 (0.0-0.2); BASO% 0.2 % (0.0-0.8); EOS# 0.12 X1000 (0.0-0.7); EOS% 2.5 % (0.0-10.0); HEMATOCRIT 43.2 % (42.0-52.0); HEMOGLOBIN 14.5 g/dL (14.0-18.0); IMM GRAN# 0.01 X1000 (0.0-0.04); IMM GRAN% 0.2 % (0.0-0.5); LYMPH% 35.9 % (20.5-51.1); MCH 33.1 PG (27-31); MCHC 33.6 g/dL (33-37); MCV 98.6 FL (81-99); MONO# 0.74 X1000 (0.11-0.59); MONO% 15.6 % (1.7-9.3); MPV 9.8 FL (7.4-10.4); NEUT# 2.15 X1000 (1.4-6.5); NEUT% 45.6 % (42.2-75.2); PLT 116 X1000 (130-400); RBC 4.38 XMIL (4.7-6.1); RDW 12.6 % (11.5-14.5); WBC 4.73 X1000 (4.8-10.8)
--- NOTE | 2019-01-11 12:06 | EKG Report ---
Test Performed on : 01/11/2019 11:03:50 AM Test Reason : weakness Blood Pressure : / mmHG Vent. Rate : 078 BPM Atrial Rate : 078 BPM P-R Int : 162 ms QRS Dur : 084 ms QT Int : 378 ms P-R-T Axes : 057 042 053 degrees QTc Int : 430 ms Sinus rhythm. with marked sinus arrhythmia. Low voltage QRS Borderline ECG When compared with ECG of 27-APR-2018 10:19, Nonspecific T wave abnormality has replaced inverted T waves in Anterior leads Unconfirmed Result
[2019-01-11 12:10] LABS: AGAP 12; ALBUMIN 3.4 g/dL (3.5-5.0); ALKALINE PHOSPHATASE 82 U/L (32-122); BUN 2 mg/dL (8-22); CHLORIDE 96 mmol/L (98-107); COSMO 269; CREATININE 0.8 mg/dL (0.7-1.2); ESTIMATED GFR > 60; GLUCOSE 118 mg/dL (70-104); GOT 58 U/L (10-34); GPT 19 U/L (10-44); POTASSIUM 3.7 mmol/L (3.5-5.1); SODIUM 136 mmol/L (136-145); TCO2 29 mmol/L (25-35); TOTAL PROTEIN 6.7 g/dL (6.3-8.3)
--- NOTE | 2019-01-11 12:57 | PROVIDER DOCUMENTATION ---
This chart was entered by Dolly Corcoran Scribe, acting as scribe for Shane Chi MD. [id number] Abuse/Overdose - General Chief Complaint: Weakness Stated Complaint: WEAKNESS Time Seen by Provider: 01/11/19 11:28 Source: patient Allergies/Adverse Reactions: Allergies Allergy/AdvReac Type Severity Reaction Status Date / Time hydrocodone Allergy ANAPHYLAXIS Verified 04/20/18 20:10 morphine Allergy HIVES Verified 04/20/18 20:10 codeine AdvReac SWELLING Verified 04/20/18 20:10 Home Medications: Home Medication List Medication Instructions Recorded Confirmed Last Taken Type Unobtainable [Home Meds 01/11/19 01/11/19 Unknown History Unobtainable] - History of Present Illness-Drug/Alcohol Nature of Presenting Problem: Patient is a 63 year old male who presents to the ED via EMS with weakness. States weakness has been present intermittently for 6 months. Reports he drinks 12 beers a day. States having a syncopal episode 2 days ago. Denies pain currently. Patient request detox. This episode of drinking or use began:: other (6 months) Severity: reports: mild Situational problems related to:: reports: N/A Psychiatric Complaints: reports: denies symptoms Associated Symptoms: reports: syncope, weakness Similar Symptoms Previously?: Yes Recently seen or treated by another doctor?: No - Substance Abuse Substance Use: reports: alcohol - Alcohol Abuse Last Drink?: 09:00 Type and amount of last drink?: beer Usually drinks:: daily Usual alcohol intake amount?: 12 beers a day Review of Systems - Adult - REVIEW OF SYSTEMS - ADULT Constitutional: reports: no symptoms reported. denies: chills, fever, fatique Eyes: reports: no symptoms reported Ears, Nose, Mouth & Throat: reports: no symptoms reported Cardiovascular: reports: no symptoms reported Respiratory: reports: no symptoms reported Gastrointestinal: reports: no symptoms reported Genitourinary: reports: no symptoms reported Musculoskeletal: reports: see HPI, muscle weakness. denies: back pain, neck pain Integumentary: reports: no symptoms reported Neurological: reports: see HPI, syncope. denies: dizziness/vertigo, headache/migraines, numbness, seizure Psychiatric: reports: no symptoms reported Endocrine: reports: no symptoms reported Hematologic/Lymphatic: reports: no symptoms reported Allergic/Immunologic: reports: no symptoms reported All Other Systems: Reviewed and Negative Past History - Adult - PAST MEDICAL HISTORY-ADULT Review of Records: reports: Old Records Reviewed, Nursing Assessment Review, Medications Reviewed, Social history reviewed & non-contributory. Major Childhood Illnesses: reports: denies history Cardiovascular: reports: HTN Respiratory: reports: denies history Gastrointestinal: reports: GERD Obstetrical/Gynecological: reports: denies history Genitourinary: reports: denies history Musculoskeletal: reports: denies history Neurological: reports: denies history Psychiatric: reports: anxiety, bipolar, depression Endocrine/Immune: reports: thyroid disorder. denies: Diabetes Other Conditions: reports: denies history - PRIOR SURGERIES/PROCEDURES Surgical/Procedure History: reports: reviewed, not pertinent, orthopedic (extremity), back/neck (back), other (perineal) - IMMUNIZATION STATUS Childhood Immunizations: See Nurse Assessment Flu Vaccine: See Nurse Assessment - FAMILY HISTORY Family History: reviewed, not pertinent - SOCIAL HISTORY Smoking: cigarettes (former) Substance Use: alcohol Alcohol Use Frequency: every day Number of drinks per typical drinking period:: 11-15 drinks Living Situation: family Physical Exam-General - PHYSICAL EXAM-ADULT Initial Vital Signs Reviewed: Yes - CONSTITUTIONAL General Appearance: alert, no apparent distress. negative: lethargic - HEAD, EARS, NOSE, MOUTH & THROAT HENMT: normocephalic/atraumatic, moist mucous membranes. negative: angioedema - RESPIRATORY Respiratory: chest non-tender, lungs clear, normal breath sounds. negative: crackles, rales - CARDIOVASCULAR Cardiovascular: normal peripheral pulses, regular rate, rhythm. negative: tachycardia - GASTROINTESTINAL (ABDOMEN) Abdominal Exam: normal bowel sounds, non tender, soft. negative: distended, guarding - MUSCULOSKELETAL Extremity: normal inspection. negative: deformity, erythema - SKIN Integumentary: normal color, normal turgor, warm/dry. negative: diaphoresis, ecchymosis, jaundice - NEUROLOGIC Neurologic: grossly normal. negative: aphasia, facial droop - PSYCHIATRIC Psych/Mental Status: normal mood/affect, oriented x 3. negative: anxious Progress - PLAN OF CARE/RESULTS Progress/Plan/Lab Results: Vital Signs - 8 hr 01/11/19 11:02 Temperature 98.3 F Pulse Rate 75 Respiratory Rate 14 Blood Pressure 120/78 O2 Sat by Pulse Oximetry 97 Laboratory Results - last 24 hr 01/11/19 01/11/19 01/11/19 11:26 11:31 11:40 WBC RBC Hgb Hct MCV MCH MCHC RDW Std Deviation Plt Count MPV Immature Gran % (Auto) Neut % (Auto) Lymph % (Auto) [place] % (Auto) Eos % (Auto) Baso % (Auto) Immature Gran # (Auto) Neut # (Auto) Lymph # (Auto) [place] # (Auto) Eos # (Auto) Baso # (Auto) Sodium Potassium Chloride Carbon Dioxide Anion Gap BUN Creatinine Estimated GFR/1.73 m2 BUN/Creatinine Ratio Glucose Calculated Osmolality Calcium Total Bilirubin AST ALT Alkaline Phosphatase Total Protein Albumin Globulin Albumin/Globulin Ratio TSH Free T4 Urine Source CLEAN CATCH Urine Color YELLOW Urine Clarity CLEAR Urine pH 6.5 Ur Specific [place] 1.005 Urine Protein NEGATIVE Urine Ketones NEGATIVE Urine Blood NEGATIVE Urine Nitrite NEGATIVE Urine Bilirubin NEGATIVE Urine Urobilinogen NORMAL Urine Microscopic RBC <10 Urine WBC NEGATIVE Urine Microscopic WBC <10 Ur Epithelial Cells <10 Urine Crystals NONE SEEN Urine Bacteria NEGATIVE Urine Casts NONE SEEN Urine Yeast NONE SEEN Urine Glucose NEGATIVE Urine Opiates Screen NONE DETECTED Ur Oxycodone Screen NONE DETECTED Urine Methadone Screen NONE DETECTED U Propoxyphene Qual NONE DETECTED Ur Barbituates Screen NONE DETECTED Ur Tricyclics Screen NONE DETECTED Ur Phencyclidine Scrn NONE DETECTED Ur Amphetamines Screen NONE DETECTED U Methamphetamines Scrn NONE DETECTED U Benzodiazepines Scrn NONE DETECTED Urine Cocaine Screen NONE DETECTED U Cannabinoids Screen NONE DETECTED Plasma/Serum Ethyl Alc 249 H 01/11/19 01/11/19 01/11/19 11:40 11:40 11:40 WBC 4.73 L RBC 4.38 L Hgb 14.5 Hct 43.2 MCV 98.6 MCH 33.1 H MCHC 33.6 RDW Std Deviation 12.6 Plt Count 116 L MPV 9.8 Immature Gran % (Auto) 0.2 Neut % (Auto) 45.6 Lymph % (Auto) 35.9 [place] % (Auto) 15.6 H Eos % (Auto) 2.5 Baso % (Auto) 0.2 Immature Gran # (Auto) 0.01 Neut # (Auto) 2.15 Lymph # (Auto) 1.70 [place] # (Auto) 0.74 H Eos # (Auto) 0.12 Baso # (Auto) 0.01 Sodium 136 Potassium 3.7 Chloride 96 L Carbon Dioxide 29 Anion Gap 12 BUN 2 L Creatinine 0.8 Estimated GFR/1.73 m2 > 60 BUN/Creatinine Ratio 3 Glucose 118 H Calculated Osmolality 269 Calcium 9.0 Total Bilirubin 0.90 AST 58 H ALT 19 Alkaline Phosphatase 82 Total Protein 6.7 Albumin 3.4 L Globulin 3.0 Albumin/Globulin Ratio 1.0 TSH 0.65 Free T4 Urine Source Urine Color Urine Clarity Urine pH Ur Specific [place] Urine Protein Urine Ketones Urine Blood Urine Nitrite Urine Bilirubin Urine Urobilinogen Urine Microscopic RBC Urine WBC Urine Microscopic WBC Ur Epithelial Cells Urine Crystals Urine Bacteria Urine Casts Urine Yeast Urine Glucose Urine Opiates Screen Ur Oxycodone Screen Urine Methadone Screen U Propoxyphene Qual Ur Barbituates Screen Ur Tricyclics Screen Ur Phencyclidine Scrn Ur Amphetamines Screen U Methamphetamines Scrn U Benzodiazepines Scrn Urine Cocaine Screen U Cannabinoids Screen Plasma/Serum Ethyl Alc 01/11/19 11:40 WBC RBC Hgb Hct MCV MCH MCHC RDW Std Deviation Plt Count MPV Immature Gran % (Auto) Neut % (Auto) Lymph % (Auto) [place] % (Auto) Eos % (Auto) Baso % (Auto) Immature Gran # (Auto) Neut # (Auto) Lymph # (Auto) [place] # (Auto) Eos # (Auto) Baso # (Auto) Sodium Potassium Chloride Carbon Dioxide Anion Gap BUN Creatinine Estimated GFR/1.73 m2 BUN/Creatinine Ratio Glucose Calculated Osmolality Calcium Total Bilirubin AST ALT Alkaline Phosphatase Total Protein Albumin Globulin Albumin/Globulin Ratio TSH Free T4 1.44 Urine Source Urine Color Urine Clarity Urine pH Ur Specific [place] Urine Protein Urine Ketones Urine Blood Urine Nitrite Urine Bilirubin Urine Urobilinogen Urine Microscopic RBC Urine WBC Urine Microscopic WBC Ur Epithelial Cells Urine Crystals Urine Bacteria Urine Casts Urine Yeast Urine Glucose Urine Opiates Screen Ur Oxycodone Screen Urine Methadone Screen U Propoxyphene Qual Ur Barbituates Screen Ur Tricyclics Screen Ur Phencyclidine Scrn Ur Amphetamines Screen U Methamphetamines Scrn U Benzodiazepines Scrn Urine Cocaine Screen U Cannabinoids Screen Plasma/Serum Ethyl Alc Orders Category Date Time Status ALCOHOL BLOOD Stat Lab 01/11/19 11:40 Completed CBC WITH ELECTRONIC DIFF [HEME] Stat Lab 01/11/19 11:40 Completed COMPREHENSIVE METABOLIC PANEL [CHEM] Stat Lab 01/11/19 11:40 Completed FREE T4 Stat Lab 01/11/19 11:40 Completed TSH Stat Lab 01/11/19 11:[address] W/POSS RFLX CULT [URINALYSIS] Stat Lab 01/11/19 11:31 Completed URINE DRUG SCREEN PL Stat Lab 01/11/19 11:26 Completed 0.9% Sodium Chloride Inj [Ns] 1,000 ml Med 01/11/19 11:20 Discontinued IV 999 mls/hr Lorazepam [Ativan] Med 01/11/19 11:20 Discontinued 1 mg IV NOW ONE Mvi [M.v.i.-12] 10 ml Med 01/11/19 11:34 Discontinued Folic Acid 1 mg Magnesium Sulfate 1 gm Thiamine 100 mg 0.9% Sodium Chloride Inj [Ns] 1,000 ml IV NOW EKG [EKG] Stat Ther 01/11/19 10:56 Draft Result Diagrams: 01/11/19 11:40 01/11/19 11:40 - EKG 1 Time of EKG reading by physician:: 11:03 EKG Read and Signed by:: Shane Chi EKG Interpretation (*Must complete 3 of following elements*): Abnormal Rate: 78 Rhythm: sinus rhythm with marked sinus arrhythmia Ellis: normal QRS: other (low voltage) MT Interval: normal Comments: borderline ECG - CONSULTS/PCP/HOSPITALIST Notification #1 *Consult/PCP/Hospitalist*: Dannielle with [facility] Time Discussed: 12:56 Consult Disposition: Admit (Pt admitted to rehab) Departure - Departure Date of Disposition Decision: 01/11/19 Time of Disposition Decision: 12:56 DIAGNOSIS: Alcohol use disorder, Recurrent falls Disposition: ADMITTED INPATIENT 09 Certified Medical Emergency: Emergent Condition: Fair Referrals and Follow-Ups: None,PCP [Primary Care Provider] - - Critical Care Note This patient required my direct & personal management of CC.: No Attestation - Physician/ TAIWO Attestation Patient care was provided by Advanced Practice Provider:: No The physician spent face to face time with patient:: Yes Advanced Practice Provider documentation review:: Supervising physician onsite and consulted in the evaluation and care of this patient. The physician did have a face to face encounter with the patient. This chart was documented by the indicated scribe, (Dolly Corcoran Scribe) and accurately reflects the services I performed and decisions made by me, Shane Chi MD, as attested by the provider's signature.
[2019-01-11] MEDS ORDERED: BENTYL PO PRN (17:27)
[2019-01-11] MEDS ORDERED: SALINE LOCK IV FLUID XX ONE (17:27)
[2019-01-11] MEDS ORDERED: ROBAXIN PO PRN (17:27)
[2019-01-11] MEDS: LIBRIUM PO SCH (17:44)
[2019-01-11] MEDS: ATARAX PO PRN (17:46)
[2019-01-12] MEDS: LIBRIUM PO SCH ×5 (00:37→22:40)
--- NOTE | 2019-01-12 02:24 | HISTORY AND PHYSICAL ---
CHIEF COMPLAINT: Nausea and vomiting. HISTORY OF PRESENT ILLNESS: The patient is a 63-year-old male who presented to the emergency department noting he has been weak and fatigued, he has been lightheaded and dizzy. He has had several falls. He has had some tremors. Denies any fevers or chills. SOCIAL HISTORY: The patient is . He is retired. He lives at home in [place]. PAST MEDICAL HISTORY: Significant for hypertension, bipolar, hypothyroidism, chronic pain. He has had 4 back surgeries, hip replacement. He has a history of hypertension and orthostatic falls, history of blackouts and head injury, as well as concussions and seizures that are alcohol related. MEDICATIONS: Synthroid 100, Effexor 150, Depakote 500, trazodone 50, Klonopin 0.5 t.i.d., aspirin 81. ALLERGIES: Morphine and all opiates. REVIEW OF SYSTEMS: CIWA is 27 secondary to moderate tremors with his arms extended, frequent nausea and dry heaves, moderate pins and needles. He has moderate hoarseness. He is easily anxious. He is frightened easily. He is agitated, mild headache, difficulty concentrating, easily confused. Denies any fevers, chills, cough, congestion. Denies dysuria, urinary frequency, urgency. Denies hematuria, hematochezia, melena, constipation or diarrhea. He does have a history of suicide ideations per previous admissions. SUBSTANCE ABUSE: The patient was in [facility] in 2014 for 2 weeks. He was in [place] in early 3 different times, remained sober around a year each time. He notes that alcohol has caused relationship problems and health problems. He started drinking as early as age 14, he currently drinks 4 tall Boys and 2 to 4 pints a day. He drinks whiskey on the weekends. He started marijuana at 17, and currently has not used in 10 years. He started depressants at age 60. He takes Klonopin as prescribed. He started opiates in his teenage years. He has not used in several years. He started smoking at 14 and currently smokes a pack a day. FAMILY HISTORY: Noncontributory. PHYSICAL EXAMINATION: VITAL SIGNS: Reviewed and stable. GENERAL: The patient is awake, alert, currently he is in no respiratory distress. HEENT: Normocephalic. NECK: Supple. CARDIOVASCULAR: Regular rate. No murmurs. CHEST: Clear and nonlabored. ABDOMEN: Soft, nondistended, nontender. EXTREMITIES: Moves all extremities. NEUROLOGIC: No changes. ASSESSMENT: 1. Nausea and vomiting. 2. Abdominal pain. 3. Tremors. 4. Myalgias. 5. Paresthesias. 6. Paroxysmal sweating. PLAN: We will admit the patient to the hospital, place him on Librium taper, begin counseling. Further orders as needed. cc: Varun Urbina MD
[2019-01-12] MEDS ORDERED: HYDROCHLOROTHIAZIDE PO SCH (09:15)
[2019-01-12] MEDS: ASPIRIN PO SCH (09:35)
[2019-01-12] MEDS: SYNTHROID PO SCH (09:35)
[2019-01-12] MEDS: DEPAKOTE PO SCH (09:36)
[2019-01-12] MEDS: EFFEXOR XR PO SCH (09:36)
[2019-01-12] MEDS: ATARAX PO PRN (18:49)
[2019-01-12] MEDS: DESYREL PO SCH (22:40)
[2019-01-13] MEDS: LIBRIUM PO SCH ×4 (06:25→17:39)
[2019-01-13] MEDS: SYNTHROID PO SCH (06:25)
--- NOTE | 2019-01-13 08:08 | PROGRESS NOTE ---
DATE: 01/12/2019 SUBJECTIVE: The patient notes that he is feeling okay. Still had some tremors this morning until he took his Librium. After taking medications, the tremors seem to have improved. He is eating breakfast. PHYSICAL EXAMINATION: Vital Signs: Reviewed. Temperature 97.8 degrees, pulse 86, respiratory rate 18, BP 131/83. General: He is awake, alert. He is in no respiratory distress. He is sitting in the bed, attempting to eat breakfast. The patient is awake, alert, currently pleasant to talk with. HEENT: Normocephalic. Neck: Supple. Cardiovascular: Regular rate. No murmurs. Chest: Clear. Nonlabored. Abdomen: Soft, nondistended. Extremities: Moves all extremities. Neurologic: No changes. ASSESSMENT: 1. Nausea and vomiting. 2. Abdominal pain. 3. Myalgias. 4. Tremors. 5. Paresthesias. 6. Paroxysmal sweating. 7. Alcohol abuse, withdrawal, and stabilization. 8. Bipolar. PLAN: Will continue the patient in the hospital. Continue to follow. Continue to wean Librium as tolerated. Hopefully home over the next 2 or 3 days. cc: Varun Urbina MD
[2019-01-13] MEDS: DEPAKOTE PO SCH (09:17)
[2019-01-13] MEDS: EFFEXOR XR PO SCH (09:17)
[2019-01-13] MEDS: ASPIRIN PO SCH (09:17)
--- NOTE | 2019-01-13 14:11 | Diag Imaging Result Doc PS360 ---
CHEST-PORTABLE - 01/13/2019 INDICATION: Rehab placement COMPARISON: 04/27/2018 FINDINGS: The lungs are normally expanded and clear. Heart size and mediastinal contours are normal. No pneumothorax or pleural effusion. IMPRESSION: Negative exam. Electronically signed by Drew Mckeon 01/13/2019 2:08 PM
[2019-01-13] MEDS: DESYREL PO SCH (20:02)
[2019-01-14] MEDS: SYNTHROID PO SCH (06:18)
[2019-01-14] MEDS: LIBRIUM PO SCH ×3 (08:05→21:57)
[2019-01-14] MEDS: DEPAKOTE PO SCH (08:05)
[2019-01-14] MEDS: EFFEXOR XR PO SCH (08:05)
[2019-01-14] MEDS: ASPIRIN PO SCH (08:05)
--- NOTE | 2019-01-14 09:28 | PROGRESS NOTE ---
DATE: 01/13/2019 SUBJECTIVE: Patient notes that he is feeling better from a withdrawal standpoint. Denies any fevers. Denies tremors. States he is eating better. However, he is still fatigued and tired and in fact, he notes that he fell in the bathroom without injury. PHYSICAL EXAMINATION: Vital Signs: Reviewed. Temperature 97.8 degrees, pulse 98, respiratory rate 18, BP 106/70. General: Patient is awake, alert, currently in no respiratory distress. HEENT: Normocephalic. Neck: Supple. Cardiovascular: Regular rate. Chest: Clear. Abdomen: Soft. Extremities: Moves all extremities. Neurologic: No changes other than generalized weakness. ASSESSMENT: 1. Adult failure to thrive with generalized weakness. 2. Nausea and vomiting resolved. 3. Tremors resolved. 4. Abdominal pain resolved. 5. Alcohol abuse withdrawal and stabilization. 6. Bipolar. 7. Hypertension. 8. Frequent falls. PLAN: We will continue patient in the hospital. Continue to wean Librium. Will get physical therapy involved. We will ask administrator social welfare to assist in discharge planning as I expect he will need rehab. cc: Varun Urbina MD
[2019-01-14] MEDS: IMODIUM PO PRN (18:51)
[2019-01-14] MEDS: DESYREL PO SCH (21:57)
[2019-01-15] MEDS: SYNTHROID PO SCH (06:09)
[2019-01-15] MEDS: DEPAKOTE PO SCH (08:29)
[2019-01-15] MEDS: IMODIUM PO PRN (08:29)
[2019-01-15] MEDS: EFFEXOR XR PO SCH (08:29)
[2019-01-15] MEDS: LIBRIUM PO SCH (08:29)
[2019-01-15] MEDS: ASPIRIN PO SCH (08:29)
[2019-01-15 11:28] VITALS: BP 103/77
--- NOTE | 2019-01-15 16:29 | DISCHARGE SUMMARY ---
ADMISSION DATE: 01/11/2019 DISCHARGE DATE: 01/15/2019 DISCHARGE DIAGNOSES: 1. Nausea and vomiting. 2. Abdominal pain. 3. Tremors. 4. Myalgias. 5. Paresthesias. 6. Paroxysmal sweating. 7. Alcohol abuse withdrawal and stabilization. 8. Adult failure to thrive with generalized weakness. 9. Hypertension. 10.Bipolar with history of manic episodes, stable. 11.Chronic back pain. 12.Hypothyroidism. 13.Frequent falls due to orthostasis, resolved. CONSULTATIONS: None. PROCEDURES: None. BRIEF HOSPITAL COURSE: The patient is a 63-year-old male who presented to the hospital secondary to nausea, vomiting, abdominal pain, tremors, and myalgias. He was in acute alcohol withdrawal. He was falling. He had generalized weakness and fatigue. Thankfully, he has stabilized from an alcohol withdrawal standpoint. We admitted him and placed him on Librium taper and continued to follow. Have weaned down his Librium. His symptoms have improved, although his generalized weakness, unfortunately, has not improved. He is still very fatigued and tired. He is still having difficulty, in fact he did fall while he was in the hospital secondary to his generalized weakness. DISPOSITION: On discharge, the patient is awake, alert, and oriented. He is in no withdrawal or medical issues currently. He is stable. We will discharge him to rehab due to his generalized weakness and adult failure to thrive. Will continue to follow. His home medications have been listed on his discharge instructions. Greater than 30 minutes was spent in total care. Discussed with the patient that he needs to get into outpatient counseling as well as life counseling. He needs to avoid all persons, places, and situations, which he has been drinking in the past. cc: Varun Urbina MD
== END 2019-01-15 14:40 | DRG 897 ==
LOC: P.ED 10:45 → P.MEDSURG 10:46 → SUATTDRO 10:46
PROVIDERS: ADMIT Family Medicine; ATTEND Family Medicine